=== PATIENT | female | born 1995 | race Caucasian/White ===

== ENCOUNTER 2018-07-10 20:42 | Emergency (ER) | payer SELFPAY ==
--- NOTE | 2018-07-10 21:00 | ED.PDOC ---
History of Present Illness - General Chief Complaint: Abdominal Pain Stated Complaint: RUQ pain Time Seen by Provider: 07/10/18 20:56 Information Source: patient Exam Limitations: no limitations - History of Present Illness Initial Comments: patient comes in today for severe onset of sharp right upper quadrant pain 2 hours ago. Patient states the pain lasted for about an hour but has now started to go away. He did not have any radiation she's never had this pain before. She denies any history of bloating, reflux problem, or difficulty with bowel movements. Patient states she has been dieting and is down approximately 18 pounds only on her menses. Patient has had no fever, chills but has had some nasal congestion. She denies any cough and denies any shortness of breath. The pain onset was a 10 out of 10 but currently there is mild soreness with palpation but no severe abdominal pain. Abdominal Pain Onset Location: RUQ Pain Radiation: no radiation Quality: severe, sharpness Timing/Duration: 1-3 hours Improving Factors: nothing Worsening Factors: nothing Associated Symptoms: denies symptoms Review of Systems - Review of Systems Constitutional: States: no symptoms reported. Denies: chills, fever EENTM: States: nose congestion. Denies: blurred vision, ear pain, throat pain Respiratory: States: no symptoms reported. Denies: cough, short of breath, wheezing Cardiology: States: no symptoms reported. Denies: chest pain Gastrointestinal/Abdominal: States: abdominal pain. Denies: constipation, diarrhea, nausea, vomiting Genitourinary: States: no symptoms reported Musculoskeletal: States: no symptoms reported Skin: States: no symptoms reported Past Medical History (General) - Vaccination History Hx Tetanus, Diphtheria Vaccination: No - none since childhood Hx Influenza Vaccination: No Hx Pneumococcal Vaccination: No - Social History Hx Alcohol Use: Yes - Female History Patient : No Family Medical History - Family History Mother Family History: No Known Living Status: Still Living Physical Exam - Physical Exam General Appearance: Alert, Comfortable, No apparent distress Eyes, Ears, Nose, Throat Exam: PERRL/EOMI, normal ENT inspection, TMs normal, pharynx normal Neck: non-tender, full range of motion, supple, normal inspection Respiratory: chest non-tender, lungs clear, normal breath sounds Cardiovascular/Chest: normal peripheral pulses, regular rate, rhythm, no edema, no murmur Peripheral Pulses: No deficit Gastrointestinal/Abdominal: normal bowel sounds, soft, tenderness - TTP RUQ with no rebound or guarding Back Exam: no CVA tenderness Progress - Progress Progress: 07/10/18 22:14 patient is now completely asymptomatic and wants to decline the CT. States she feels good and will follow up as an outpatient. - Results/Orders Results/Orders: 07/10/18 20:56 Abdoment/Pelvis w/o Contrast [CT] Stat 07/10/18 21:00 UA [URINALYSIS] Stat Laboratory Results WBC 4.7 K/mm3 (4.8-10.8) L 07/10/18 21:10 RBC 4.08 M/mm3 (4.20-5.40) L 07/10/18 21:10 Hgb 12.4 gm/dL (12.0-16.0) 07/10/18 21:10 Hct 36.8 % (36.0-47.0) 07/10/18 21:10 MCV 90.1 fl (81.0-99.0) 07/10/18 21:10 MCH 30.5 pg (27.0-31.0) 07/10/18 21:10 MCHC 33.8 g/dL (33.0-37.0) 07/10/18 21:10 RDW 12.5 % (11.5-14.5) 07/10/18 21:10 Plt Count 213 K/mm3 (130-400) 07/10/18 21:10 MPV 9.0 fl (7.40-10.4) 07/10/18 21:10 Absolute Neuts (auto) 2.40 K/uL (1.8-6.8) 07/10/18 21:10 Absolute Lymphs (auto) 1.70 K/uL (1.0-3.4) 07/10/18 21:10 Absolute Monos (auto) 0.40 K/uL (0.2-0.8) 07/10/18 21:10 Absolute Eos (auto) 0.20 K/uL (0.0-0.4) 07/10/18 21:10 Absolute Basos (auto) 0.00 K/uL (0.0-0.1) 07/10/18 21:10 Neutrophils % 50.4 % (42.0-78.0) 07/10/18 21:10 Lymphocytes % 35.8 % (20.0-50.0) 07/10/18 21:10 Monocytes % 8.9 % (2.0-9.0) 07/10/18 21:10 Eosinophils % 4.4 % (1.0-5.0) 07/10/18 21:10 Basophils % 0.5 % (0.0-2.0) 07/10/18 21:10 Sodium 138 mmol/L (135-145) 07/10/18 21:10 Potassium 3.7 mmol/L (3.6-5.0) 07/10/18 21:10 Chloride 105 mmol/L (101-111) 07/10/18 21:10 Carbon Dioxide 24 mmol/L (21-31) 07/10/18 21:10 Anion Gap 12.7 (12-18) 07/10/18 21:10 BUN 14 mg/dL (7-18) 07/10/18 21:10 Creatinine 0.55 mg/dL (0.6-1.3) L 07/10/18 21:10 BUN/Creatinine Ratio 25.5 (10-20) H 07/10/18 21:10 Random Glucose 87 mg/dL (70-105) 07/10/18 21:10 Serum Osmolality 275.5 mOsm/L (275-295) 07/10/18 21:10 Calcium 8.7 mg/dL (8.4-10.2) 07/10/18 21:10 Total Bilirubin 0.4 mg/dL (0.2-1.0) 07/10/18 21:10 AST 20 IU/L (10-42) 07/10/18 21:10 ALT 22 IU/L (10-60) 07/10/18 21:10 Alkaline Phosphatase 47 IU/L (42-121) 07/10/18 21:10 Serum Total Protein 7.3 gm/dL (6.4-8.2) 07/10/18 21:10 Albumin 4.0 g/dl (3.2-5.5) 07/10/18 21:10 Globulin 3.3 gm/dL (2.3-3.5) 07/10/18 21:10 Albumin/Globulin Ratio 1.2 (1.1-1.9) 07/10/18 21:10 Serum HCG, Qual Negative (NEGATIVE) 07/10/18 21:10 Departure - Departure Clinical Impression: Abdominal pain Qualifiers: Abdominal location: left upper quadrant Qualified Code(s): R10.12 - Left upper quadrant pain Disposition: Discharge to Home or Self Care Condition: Good Departure Forms: ED Discharge - Pt. Copy, Patient Portal Self Enrollment Instructions: DI for Abdominal Pain-Adult Referrals: WILLY RASCON IV, [facility] [employer] [Primary Care Provider] - 1-2 Weeks Home Medications: Ambulatory Orders Amoxicillin & Pot Clavulanate [Augmentin] 875 mg PO BID #[id number] tab 04/15/14 Additional Instructions: return to ER for severe, intractable pain or emesis. follow up on Friday with PCP to discuss abdominal u/s
[2018-07-10 21:50] VITALS: O2SAT 100
[2018-07-10 22:18] VITALS: BP 118/77; TEMP 98.4
== END 2018-07-10 22:20 | disposition home or self-care (01) ==
LOC: ER 20:42
DX: R10.12 Left upper quadrant pain (principal); R10.11 Right upper quadrant pain